=== PATIENT | male | born 1965 | race Caucasian/White ===

== ENCOUNTER 2022-05-26 16:09 | Emergency (ER) | payer MEDICAID, OTHER ==
[~2022-05-26] VITALS: Ht 182.9 cm; Wt 79.0 kg
[~2022-05-26 16:09] MED LIST: ACET-1182 PO; ASPI-1822 PO; GABA100C PO; LANTUS SQ; METF-1139 PO; VIB100 PO
[2022-05-26 16:44] VITALS: BP 114/72
--- NOTE | 2022-05-26 16:52 | NUR ---
Patient ambulated to bed 3.
--- NOTE | 2022-05-26 16:52 | NUR ---
PT AMB TO BED 9.
[2022-05-26] MEDS ORDERED: INSULIN REGULAR, HUMAN 100 UNIT/ML VIAL IV ONE (17:05)
[2022-05-26] MEDS ORDERED: NACL 0.9% 1,000 ML IV ONE ×2 (17:05→18:25)
--- NOTE | 2022-05-26 17:21 | NUR ---
IV started, blood work obtained.
[2022-05-26 17:25] LABS: BASOPHILS # (AUTO) 0.1 K/uL (0.00-0.22); BASOPHILS % (AUTO) 0.5 % (0.0-2.0); EOSINOPHILS # (AUTO) 0.1 K/uL (0-0.4); EOSINOPHILS % (AUTO) 1.3 % (0.0-4.0); HEMATOCRIT 36.9 % (36-52); HEMOGLOBIN 13.2 g/dL (12.0-18.0); LYMPHOCYTES # (AUTO) 1.6 K/uL (2.0-11.5); LYMPHOCYTES % (AUTO) 15.1 % (20.5-51.1); MEAN CORPUSCULAR HEMOGLOBIN 32 pg (27-31); MEAN CORPUSCULAR HGB CONC 36 g/dL (33-37); MONOCYTES # (AUTO) 0.8 K/uL (0.8-1.0); NEUTROPHILS # (AUTO) 7.8 K/uL (1.8-7.7); NEUTROPHILS % (AUTO) 75.1 % (42.2-75.2); PLATELET COUNT (AUTO) 232 K/uL (140-450); RED BLOOD CELL COUNT(AUTO) 4.19 MIL/uL (4.20-6.10); RED CELL DISTRIBUTION WIDTH 12.8 % (11.6-13.7); WHITE BLOOD COUNT (AUTO) 10.4 K/uL (4.8-10.8)
--- NOTE | 2022-05-26 17:30 | NUR ---
56 y/o male c/o abscess to lower mid back x 4 days. Patient is noted with heat and redness to abscess area. Patient ran out of medication 3 weeks ago. Patient's blood sugar at triage was 537. Medical History: DM NKDA
--- NOTE | 2022-05-26 17:39 | NUR ---
Dr. Lopez evaluating patient at bedside.
[2022-05-26 17:45] LABS: ALBUMIN 3.1 g/dL (3.4-5.0); ANION GAP 17.2 (8-16); CREATININE 1.4 mg/dL (0.6-1.3); POTASSIUM 4.2 mmol/L (3.5-5.1); TOTAL BILIRUBIN 0.6 mg/dL (0.0-1.0)
[2022-05-26] MEDS ORDERED: ceFAZolin 1,000 MG VIAL ONE (18:04)
[2022-05-26] MEDS ORDERED: INSULIN REGULAR, HUMAN 100 UNIT/ML VIAL SUBQ ONE (18:25)
[2022-05-26] MEDS ORDERED: SULF-59 PO (18:52)
[2022-05-26] MEDS ORDERED: CEPH-588 PO (18:52)
[2022-05-26] MEDS ORDERED: BACTO TP (18:52)
--- NOTE | 2022-05-26 19:15 | NUR ---
Report given to ROSY Pepper for transfer of care.
[2022-05-26 19:51] VITALS: BP 110/74
--- NOTE | 2022-05-26 19:51 | NUR ---
Patient discharged with v/s stable. Written and verbal after care instructions given and explained. Patient alert, oriented and verbalized understanding of instructions. Ambulatory with steady gait. All questions addressed prior to discharge. ID band removed. Patient advised to follow up with PMD. Rx of KEFLEX, BACTROBAN, AND BACTRIM given. Patient educated on indication of medication including possible reaction and side effects. Opportunity to ask questions provided and answered.
--- NOTE | 2022-06-09 23:56 | NUR ---
LATE ENTRY* NS DISCONTINUED AT 194
== END 2022-05-26 19:51 | disposition home or self-care (01) ==
LOC: MED 16:09
DX: L02.212 Cutaneous abscess of back [any part, except buttock and flank] (principal); E11.65 Type 2 diabetes mellitus with hyperglycemia; Z79.899 Other long term (current) drug therapy; Z79.4 Long term (current) use of insulin; Z79.82 Long term (current) use of aspirin
CPT/HCPCS: 36415; 80053; 83690; 85025; 96361; 96365; 96372; 96375; 99284; J0690; J1815; J7030